=== PATIENT | female | born 1970 | race Caucasian/White ===

== ENCOUNTER 2023-12-05 07:02 | Emergency (ER) | payer BC, SELFPAY ==
[2023-12-05 07:06] VITALS: BP 144/85
[2023-12-05 07:28] VITALS: BP 133/77
--- NOTE | 2023-12-05 07:52 | ED.GENMED ---
History of Present Illness
General
Chief Complaint: Abdominal Symptoms
Source: patient
Exam Limitations: none
Time Seen by Provider: 12/05/23 07:39
Travel History
Have you had any contact with someone who has COVID-19?: No
Do you have any symptoms of coronavirus? Fever > 100 degrees, chills, cough, shortness of breath, sore throat, loss of taste or smell, muscle aches, or headache?: No
History of Present Illness
History of Present Illness:
53-year-old female presents complaining of gradually worsening right mid abdominal pain starting 2 to 3 days ago. No associated fever or anorexia. She has been moving her bowels and urinating without ALTE. She has a history of kidney stones but
this feels different. The pain is made worse with coughing and moving. No other complaints at this time
Phy Exam
Physical Exam
Physical Exam:
General: Well-appearing female no acute respiratory distress
HEENT: Normocephalic atraumatic
Heart: Regular rate and rhythm no murmurs
Lungs: Clear no wheeze or rales
Abdomen: Soft tender to the right mid and lower abdomen mild guarding no rebound tenderness normal bowel sounds no costovertebral angle tenderness
Extremities: No cyanosis or edema
Skin: Warm no rash
Course
Orders/Labs/Results
Orders:
Orders
12/05/23 07:50
0.9% Sodium Chloride 1000 ml [Nss] 1,000 ml IV BOLUS
Ketorolac [Toradol] 15 mg IV NOW STA
12/05/23 07:51
CT Abd/pelvis W Iv Cont Urgent
Comment:
Reason For Exam: right abdominal pain
12/05/23 08:08
Complete Blood Count/With Diff Urgent
Comprehensive Metabolic Panel Urgent
Lipase Urgent
Urinalysis Reflex To Culture Urgent
Date Specimen was Collected: 12/05/23
Time Specimen was Collected: 08:04
Urine Microscopic Reflex Cult Urgent
12/05/23 11:06
Ketorolac [Toradol] 15 mg IV NOW STA
Abnormal Lab Results
12/05/23
08:08
MCH 31.8 H pg
(27.0-31.0)
Absolute Neuts (auto) 7.2 H 10^3/uL
(1.4-6.5)
Absolute Monos (auto) 0.8 H 10^3/uL
(0.1-0.6)
Neutrophils % 75.6 H %
(42.2-75.2)
Lymphocytes % 13.9 L %
(20.5-51.1)
Glucose 118 H mg/dl
(70-99)
Leukocyte Esterase Rfl Trace A
(Negative)
Urine Bacteria (Reflex) Few A
(Negative)
12/05/23 08:08
12/05/23 08:08
Vital Signs
Initial and Last Documented VS:
Initial Vital Signs
Temp Pulse Resp BP Pulse Ox
98.0 F 77 16 144/85 98
12/05/23 07:06 12/05/23 07:06 12/05/23 07:06 12/05/23 07:06 12/05/23 07:06
Last Documented Vital Signs
Temp Pulse Resp BP Pulse Ox
98.0 F 69 15 118/71 99
12/05/23 07:06 12/05/23 12:00 12/05/23 12:00 12/05/23 09:00 12/05/23 12:00
MDM/Problems Addressed
Differential Diagnosis Includes:
Right mid abdominal pain. Question possible appendicitis versus biliary colic versus constipation.
Check labs and urine. Will order CT.
*Critical Care Note
Total Time (30-74mins, 75-104mins- exclusive of procedures): Not Applicable
Update Note
Update Note:
Patient reevaluated multiple times. Discussed findings with surgery. CT demonstrates what appears to be an infarct of the omentum. Appendix was normal. General surgery was in the room to see the patient. Offered 1 more round of Toradol. We
could consider keeping for further pain control or going home. After period of observation additional pain medicine, patient states she is feeling the same but no worse. She wishes to deal with it at home.
ED Attending Note
-
Portions of this chart may have been created with voice recognition software.� Occasional wrong word or��sound alike� substitutions may have occurred due to the inherent limitations of voice recognition software.
Discharge Plan
Departure
Patient Disposition: Home (Routine Discharge)
Date of Disposition: 12/05/23
Time of Disposition: 13:11
Patient with high blood pressure during this ER visit?: No
Discharge Problem:
Omental infarction
Instructions: Abdominal Pain
Referrals:
Teresa Navarrete MD [Family Provider] -
Activity Restrictions/Additional Instructions:
Continue with ibuprofen or Tylenol for pain. Please return here for increasing pain fever vomiting or other concerning findings.
Interventions
Interventions:
*Risk Screen - Suicide Last Done: 12/05/23 07:23
*General Assessment Last Done: 12/05/23 07:23
*Neglect/Abuse Screening Last Done: 12/05/23 07:23
ED- Fall Risk Assessment Last Done: 12/05/23 07:23
*ED COVID-19 Vaccine History Last Done: 12/05/23 07:06
ZB-Siengg-Vinemolpnq Assessment Last Done: 12/05/23 07:23
Discharge Date and Time
Print Language: GEORGIAN
[2023-12-05 08:00] VITALS: BP 123/64
[2023-12-05] MEDS: NSS 1000 IV (08:08)
[2023-12-05] MEDS: TORADOL 15 MG IV ×2 (08:08→11:22)
[2023-12-05 08:25] LABS: % Basophils 0.4 % (0-2); % Eosinophils 1.4 % (0-6); % Immature Granulocytes 0.3 % (0-0.5); % Lymphocytes 13.9 % (20.5-51.1); % Monocytes 8.4 % (1.7-9.3); % Neutrophils 75.6 % (42.2-75.2); Absolute Eosinophils 0.1 10^3/uL (0-0.7); Absolute Lymphocytes 1.3 10^3/uL (1.2-3.4); Absolute Monocytes 0.8 10^3/uL (0.1-0.6); Absolute Neutrophils 7.2 10^3/uL (1.4-6.5); Hematocrit 37.9 % (37.0-47.0); Hemoglobin 13.7 g/dL (12.0-16.0); Mean Corp Hgb Conc. 36.1 g/dL (33.0-37.0); Mean Corpuscular Hgb 31.8 pg (27.0-31.0); Mean Corpuscular Volume 87.9 fL (81.0-99.0); Mean Platelet Volume 9.6 fL (7.4-10.4); Nucleated Red Blood Cells % 0 %; Platelet Count 201 10^3/uL (130-400); Red Blood Cell Count 4.31 10^6/uL (4.20-5.40); Red Cell Dist. Width 13.2 % (11.5-14.5); White Blood Cell Count 9.5 10^3/uL (4.8-10.8)
[2023-12-05 08:32] LABS: Urine Albumin Negative (Neg - Trace); Urine Bilirubin Negative (Negative); Urine Character Clear (Clear); Urine Color Yellow; Urine Glucose Negative (Negative); Urine Ketone Negative (Negative); Urine Leukocyte Trace (Negative); Urine Nitrite Negative (Negative); Urine Occult Blood Negative (Negative); Urine Specific Gravity 1.015 (<1.030); Urine Urobilinogen Negative (Neg - 1+); Urine pH 6.5 (5.0-9.0)
[2023-12-05 08:37] LABS: ALT (SGPT) 18 U/L (0-35); AST (SGOT) 20 U/L (14-36); Albumin 4.2 g/dl (3.5-5.0); Alkaline Phosphatase 110 U/L (38-126); Blood Urea Nitrogen 12 mg/dl (7-17); Calcium 9.1 mg/dl (8.4-10.2); Carbon Dioxide 30 mmol/L (22-30); Chloride 103 mmol/L (98-107); Glucose 118 mg/dl (70-99); Lipase 51 U/L (23-300); Potassium 3.8 mmol/L (3.5-5.1); Sodium 137 mmol/L (135-145); Total Bilirubin 0.5 mg/dl (0.2-1.3); Total Protein 6.6 g/dl (6.3-8.2); eGFR > 60.00
[2023-12-05 08:47] LABS: Urine Squamous Cell >30 /LPF (Few)
[2023-12-05 08:48] LABS: Urine Bacteria Few (Negative); Urine Red Blood Cell 0-2 /HPF (0-2)
[2023-12-05 09:00] VITALS: BP 118/71
--- NOTE | 2023-12-05 11:06 | HPS.HSE ---
Addendum entered and electronically signed by Allen Johnson MD 12/05/23 11:33:
I saw and examined the patient independently.
The Clinical Business Manager's note was reviewed and I agree with the note, assessment and plan except where noted below.
Comment: This is a 53-year-old female with no significant past medical history other than IBS who presents with right upper quadrant abdominal pain that began Tuesday. The patient denies recent infection, fever, Chest Pain, Shortness Of Breath,
Nausea, Vomiting, changes in urinary and bowel habits, unintentional weight loss, jaundice, icterus, acolic stools. Last colonoscopy: Roughly 4 years ago, notable only for polyps. On exam she is tender to palpation in the right upper quadrant but
otherwise benign and her labs are also benign. A CT scan was performed concerning for omental infarction
Will plan for a trial of NSAIDs here in the ED. If patient improves okay to discharge home on 1 week course of scheduled NSAIDs 600 to 800 mg 3 times daily with follow-up with me in the 2 weeks.
If patient does not improve, will admit for observation with plans for possible diagnostic laparoscopy later today versus tomorrow and possible omentectomy. All questions answered, patient agreeable to plan.
Original Note:
Family Physician
-
Family Physician: Teresa Navarrete
Chief Complaint
-
right sided abdominal pain
History of Present Illness
53 yo female with h/o IBS, medullary kidney, renal stones, x3, bladder sling and abdominoplasty who presents today through the ED with 3 day history of right sided abdominal pain which has been increasing in intensity. She denies recent
illness. Pain is not exacerbated by eating but worsens with movement and with abdominal palpation. She denies nausea, vomiting, diarrhea, constipation, fever or chills. On exam, the right mid abdomen is tender. Reports that Toradol 'took the edge
off' but pain persists.
Medical History
Past Medical History
Past Medical History: Reports Other (Medullary sponge kidney, nephrolithiasis, IBS, Diverticulosis on routine colonoscopy)
Past Surgical History: Reports Urological (ureteroscopy, bladder sling) and Other (abdominoplasty 06/2023)
Social History
Tobacco: Former Smoker
Alcohol: None
Personal:
Living: With Family
Family History
Family History: Not pertinent
Allergies / Home Medications
Allergies reflects when Allergies were last updated in [facility].
Home Medications with original date entered in [facility]
Allergy/Medication List:
NKDA
Home meds:
HCTZ 25mg PO Daily
Review of Systems
-
History Source: Patient
A 12 point ROS was completed and negative except as noted: Yes
Physical Exam
Vital Signs
Vital Signs
Temp Pulse Resp BP Pulse Ox
98.0 F 71 15 118/71 98
12/05/23 07:06 12/05/23 10:45 12/05/23 10:45 12/05/23 09:00 12/05/23 10:45
Physical Exam
General: Well Developed, Well Nourished and Conversant
HEENT: Moist mucous membranes
Respiratory: Non Labored Respirations
GI: Soft, Non Distended and Tender (right mid abdomen)
Skin: Warm
Neuro: Awake, Alert and AO x 3
Psych: Calm
Laboratory Results
-
12/05/23 08:08
12/05/23 08:08
Laboratory Results
Total Bilirubin 0.5 mg/dl (0.2-1.3) 12/05/23 08:08
AST 20 U/L (14-36) 12/05/23 08:08
ALT 18 U/L (0-35) 12/05/23 08:08
Alkaline Phosphatase 110 U/L (38-126) 12/05/23 08:08
Lipase 51 U/L (23-300) 12/05/23 08:08
Data Reviewed
-
CT Scan: Image Personally Visualized and interpreted, Report Reviewed by me, Discussed with Physician and Discussed with Patient
Lab Data: Labs Reviewed by me, Discussed with Physician and Discussed with Patient
Old Records: Reviewed
Impression/Plan
-
IMPRESSION: 53 yo female with h/o IBS, medullary kidney, renal stones, x3, bladder sling and abdominoplasty who presents today through the ED with 3 day history of right sided abdominal pain without n/v/d/f/c. AFVSS. Tender on exam. CT
imaging reviewed with findings of inflammatory process to the right mid abdomen which is likely an omental infarction. No cholecystitis, bowel obstruction, diverticulitis or ureteral obstruction. Unclear etiology of infarction. No leukocytosis.
No need for emergent surgery. Anticipate will be able to manage nonoperatively with NSAID's. However, if pain continues to worsen, may need laparoscopic partial omentectomy for management of pain.
PLAN:
Will given second 15mg dosage of Toradol while in ED, if pain improved, ok for d/c from ED on oral NSAID's
If pain not improved, will place in observation overnight for IV analgesics/IVF and consider surgery if no improvement overnight
Ok for regular diet
== END 2023-12-05 13:21 | disposition home or self-care (01) ==
LOC: EMR 07:02
PROVIDERS: Physician Assistant; EMERGENCY PHYSICIAN Emergency Medicine; FAMILY PHYSICIAN Internal Medicine
DX: K55.069 Acute infarction of intestine, part and extent unspecified (principal); Z87.891 Personal history of nicotine dependence
CPT/HCPCS: 99285; 96374; 96361; 96376; 74177; 80053; 81003; 81015; 83690; 85025; Q9967

== ENCOUNTER → 2024-05-25 10:57 | Outpatient (REF) | payer BC, SELFPAY | LOC: HWRAD 10:57 | PROVIDERS: ATTENDING PHYSICIAN Internal Medicine | DX: N20.0 Calculus of kidney (principal) | CPT/HCPCS: 76775 ==

== ENCOUNTER → 2025-03-25 09:58 | Outpatient (REF) | payer BC, SELFPAY | LOC: HWRAD 09:58 | PROVIDERS: ATTENDING PHYSICIAN Internal Medicine; FAMILY PHYSICIAN Family Medicine | DX: N20.0 Calculus of kidney (principal); I10 Essential (primary) hypertension; R82.994 Hypercalciuria; E83.39 Other disorders of phosphorus metabolism | CPT/HCPCS: 76770 ==